=== PATIENT | male | born 1995 | race Caucasian/White ===

== ENCOUNTER 2022-04-23 08:07 | Outpatient (CLI) | payer OTHER ==
[~2022-04-23 08:07] MED LIST: GADOBUTROL 10 MMOL/10 ML VIAL ONE
--- NOTE | 2022-04-23 11:07 | MRI Report ---
PROCEDURE: Brain W/WO INDICATIONS: HEADACHE CONTRAST: IV CONTRAST: Gadavist ml: 9.1 TECHNIQUE: Noncontrast axial T1 spin echo, axial T2 fast spin echo, sagittal and axial FLAIR, coronal T2 fast sp in echo, axial gradient echo, axial diffusion and ADC through the brain. After the administration of contrast, axial and coronal T1 spin echo with fat saturation through the brain. COMPARISON: None. 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 This demonstrates low signal intensity on T1-weighted images and increased T2 signal near that of CSF on T2-weighted images with incomplete suppression on FLAIR sequences and no evidenc e of enhancement. Mass abuts the dorsal surface of the tectum and although not entirely definitive ap pears to perhaps slightly narrowed aqueduct superiorly. Midline structures are otherwise normal in configuration. There is no abnormal intracranial enhanceme nt or restricted diffusion or susceptibility artifact. No abnormal extra-axial fluid collection. Basi lar cisterns are patent. Normal caliber of the ventricular system. No significant orbital abnormality . Paranasal sinuses and mastoid air cells are clear. 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 This is a potential source of headache symptoms. Consider neurosurgical consult. Reviewed by: Tariq Walker MD on 04/23/2022 11:06 AM PDT Approved by: Tariq Walker MD on 04/23/2022 11:06 AM PDT Station ID: [id number]
[2022-04-23] MEDS ORDERED: GADOBUTROL 10 MMOL/10 ML VIAL IVP ONE (13:22)
== END 2022-04-23 08:08 | disposition home or self-care (01) ==
LOC: DI 08:07
PROVIDERS: ATTEND Student in an Organized Health Care Education/Training Program
DX: G93.0 Cerebral cysts (principal); R51.9 Headache, unspecified; M54.2 Cervicalgia; R11.10 Vomiting, unspecified
CPT/HCPCS: 70553; A9585

== ENCOUNTER 2023-10-30 10:40 | Outpatient (CLI) | payer OTHER ==
--- NOTE | 2023-10-30 11:20 | Sleep Patient Instructions ---
Sleep Center Visit Summary - Patient Visit Information Reason for Visit: Initial consult for evaluation of sleep disordered breathing and other sleep issues. - Patient Instructions Instructions Attached: Sleep Study Home Monitor Additional Instructions: You will be completing a sleep study, either an in-lab polysomnography (PSG) or home sleep study (HST). You will follow-up in the sleep care office after the sleep study is completed to hear the results and talk about therapy, if needed. You will be called by our office staff to schedule this appointment, but you may contact us with any questions. - Clinic Information Contact: [facility] [address] [place] [address] [email or web address] T: [phone]
--- NOTE | 2023-10-30 11:26 | SLEEP CARE CONSULTATION ---
Information from patient questionnaire entered by Cheri Jeronimo. I have reviewed and concur with the information entered by Cheri Jeronimo. This document represents the service I personally performed and the decisions made by me, Peg Bradford ARNP. History of Present Illness Service Date and Time: 10/30/2023 1040 Reason for Visit: New patient Chief Complaint: reports: Unrefreshed sleep, Snoring, Frequent awakenings at night, Other (Takes a long time to fall asleep) Date of Onset: 3 years Usual bedtime: 8 - 9 PM Time it takes to fall asleep: 1 - 4 hours Snores at night: Yes Observed to quit breathing while asleep: No Sleeps alone due to snoring: No Number of times waking at night: 1 - 3 Reasons for waking at night: reports: Other (Unknown reason). denies: Choking, Snoring, Gasping for air Toss, Turn, or Twitch while sleeping: Yes Recalls having dreams: No Usually gets out of bed at: 5 - 6 Feels refreshed in the morning: No Morning headache: Yes (Usually resolves 3 - 4 hours or sometimes not at all) Sleepy or fatigued during the day: Yes Ever fallen asleep while driving: No Takes day naps: No Dreams during day naps: No Prior sleep studies: No Additional HPI information: I had the pleasure of seeing PETE WHITMAN today regarding the possibility of him having a sleep disorder. His current complaints are frequent night awakenings, snoring and unrefreshed sleep. He says he was getting migraines frequently. He wakes up 2-4 times a week with headaches and they don't go away easily. It was recommended to have him come here for evaluation because he takes a long time to fall asleep. He has tried melatonin but has not noticed a big difference. He averages about an hour or more to fall asleep. Once he gets to sleep he can stay asleep with a few wake ups. His will wake him up to turn over when he is snoring and disturbing her sleep but she sleeps in same room. He does snore loudly but no pauses in breathing when sleeping. He does feel rested if he gets only 5 hours of sleep. If he sleep 7 or more hours he wakes up feeling tired and has headaches. He avoids naps because he will wake up with headaches then too. He has gained 30 pounds in last 5 years but has been working out more with weights to try to increase muscle. 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 Patient is and lives in [place]. Have you smoked in the past 12 months: No Cigarettes per day (20/pack): 20 Years of smokin Quit date: 2017 Smoking Pack Years: 3.0 Alcohol use: Yes Alcohol amount and frequency: 2 - 3 drinks monthly Caffeine use: Yes Caffeine amount and frequency: 1 - 2 cups daily Family History Family history of sleep disordered breathing: No Allergies and Home Medications Known drug allergies: No Drug allergies reviewed: Yes Home medication list reviewed: Yes (as listed) Allergy and home medication list: Allergies No Known Drug Allergies Allergy (Verified 10/30/23 11:12) Home Medications Fish Oil 500 mg Softgel See Rx Instructions .ROUTE .COMPLEX 10/30/23 [History] Multivitamin See Rx Instructions .ROUTE .COMPLEX 10/30/23 [History] Review of Systems Weight gain over past 5 years: 30, weight lifting/running, trying to gain muscle Cardiovascular: denies: high blood pressure Gastrointestinal: denies: heartburn Neurological: reports: headaches Psychiatric: denies: anxiety, depression Ear/Nose/Throat: reports: wisdom teeth removed. denies: tonsillectomy Musculoskeletal: reports: neck pain Physical Exam Vital signs obtained and entered by: Peg Valderrama NP Blood Pressure: 138/92 Cuff size: long (left arm) Heart Rate: 67 O2 Saturation: 98 Height: 6 ft Weight: 218 lb 12.8 oz Body Mass Index: 29.7 BMI Classification: Overweight Neck circumference: 16.75 (inches) Mouth and throat: narrow oropharynx Soft palate: long Hard palate: normal Uvula: normal Uvula visualization: 25% Mallampati Class III Tongue: enlarged in size with teeth lares on lateral edges Tonsils: 1+ Neck: normal w/o lymphadenopathy or thyromegaly Heart: regular rate and rhythm Lungs: clear bilaterally Impression and Plan 1. Suspected Obstructive Sleep Apnea-Hypopnea Syndrome, as suggested by a history of loud and irregular snoring, morning headache, frequent awakening during the night, unrefreshed sleep, and excessive daytime sleepiness. Narrow oropharynx and obesity are common predisposing factors for obstructive sleep apnea-hypopnea syndrome. I recommend proceeding to polysomnography to confirm the diagnosis and to assess severity. If the patient has significant sleep disordered breathing, a manual CPAP titration study will also be performed to find the optimal treatment pressure. I informed the patient of what the sleep studies involve and after some discussion, obtained agreement to proceed. The pathophysiology of obstructive sleep apnea-hypopnea syndrome was discussed with the patient and health risks of cardiovascular and cerebrovascular disease if not treated. Risks of drowsy driving discussed in detail and patient advised to avoid long distance driving and to puller machine at the first sign of drowsiness. Patient agreed to plan. * Schedule polysomnography. * Avoid long distance driving or driving when feeling sleepy. * Avoid alcohol, sedative and muscle relaxant around bedtime. * Attempt to lose weight. * Review instructions provided by trained office staff on how to prepare for the sleep study. * Return for follow-up after sleep study completed. Counseling Topics: Weight loss health impact Plan: PSG/HST Visit Type: In Office Time Spent with Patient (minutes): 30 Provider Statement: I spent 100% of the Face to Face Visit with the patient with greater than 50% spent counseling the patient and coordination of care.
[2023-10-30 11:28] VITALS: BP 138/92; O2SAT 98
== END 2023-10-30 10:41 | disposition home or self-care (01) ==
LOC: SC 10:40
PROVIDERS: ATTEND Nurse Practitioner Family
DX: R06.83 Snoring (principal); R51.9 Headache, unspecified; G47.8 Other sleep disorders; G47.10 Hypersomnia, unspecified; E66.3 Overweight; Z68.29 Body mass index [BMI] 29.0-29.9, adult; Z87.891 Personal history of nicotine dependence
CPT/HCPCS: 99203; 99212

== ENCOUNTER 2023-12-01 13:57 | Outpatient (CLI) | payer OTHER | END 2023-12-01 13:58 | disposition home or self-care (01) | LOC: SC 13:57 | PROVIDERS: ATTEND Nurse Practitioner Family | DX: R09.02 Hypoxemia (principal); G47.8 Other sleep disorders; R51.9 Headache, unspecified; E66.3 Overweight | CPT/HCPCS: 95806 ==

== ENCOUNTER 2024-02-29 13:53 | Outpatient (CLI) | payer OTHER ==
--- NOTE | 2024-03-07 09:04 | SLEEP CARE CONSULTATION ---
Information from patient questionnaire entered by Lalita Landaverde. I have reviewed and concur with the information entered by Lalita Landaverde. This document represents the service I personally performed and the decisions made by me, Jaimie Bragg MD, [facility]. History of Present Illness Service Date and Time: 02/29/2024 1353 Reason for follow up: other (2 MONTH F/U INSOMNIA) Prior sleep studies: No Type of Sleep Study: Home sleep study (COMPLETED 12/01/23) HPI additional information: Mr. Ontiveros was suspected to have obstructive sleep apnea-hypopnea but had a home sleep apnea test (HSAT) that was negative (AHI was 2.). The patient continues to complain of excessive daytime sleepiness, loud snore, and witnessed apneas. He says he goes to bed at 9 pm but it takes a while to fall asleep. He goes to bed at that time because that is when his child goes to bed. He has to get up at 5:30 am. Sleep Study - Results Type of Sleep Study: Home sleep study (COMPLETED 12/01/23) Prior sleep studies: No Subjective Initial [place] Sleepiness Scale score: 11 (in 2023) Allergies and Home Medications Drug allergies reviewed: Yes Home medication list reviewed: Yes Allergy and home medication list: Allergies No Known Drug Allergies Allergy (Verified 02/29/24 14:01) Review of Systems Review of systems same as previous: Yes Physical Exam Vital signs obtained and entered by: LALITA Kim MA Blood Pressure: 142/81 (LEFT ARM) Cuff size: regular Heart Rate: 92 O2 Saturation: 9 Height: 6 ft Weight: 208 lb 9.6 oz Body Mass Index: 28.3 BMI Classification: Overweight Impression and Plan IMPRESSION: 1. Insomnia, most likely from insufficient sleep at night. However, because he continues to report snores and witnessed apneas, I order an in- laboratory polysomnography. PLAN: 1. Schedule an in-laboratory polysomnography. 2. Delay bedtime to 11 pm and maintain wakeup time at 5:30 6 am. 3. Return for follow up after the sleep study. Follow up with Sleep Care in: 1-2 months Visit Type: In Office Time Spent with Patient (minutes): 15 Provider Statement: I spent 100% of the Face to Face Visit with the patient with greater than 50% spent counseling the patient and coordination of care.
[2024-03-07 09:12] VITALS: BP 142/81; O2SAT 9
== END 2024-02-29 13:54 | disposition home or self-care (01) ==
LOC: SC 13:53
PROVIDERS: ATTEND Internal Medicine Pulmonary Disease
DX: R06.83 Snoring (principal); R06.81 Apnea, not elsewhere classified; G47.8 Other sleep disorders; G47.00 Insomnia, unspecified; R51.9 Headache, unspecified; G47.10 Hypersomnia, unspecified; E66.3 Overweight; Z68.28 Body mass index [BMI] 28.0-28.9, adult
CPT/HCPCS: 99212